=== PATIENT | male | born 1950 | race Native Hawaiian/Other Pacific Islander ===

== ENCOUNTER 2017-03-04 17:07 | Outpatient (CLI) | payer BC | END 2017-03-04 19:24 | disposition home or self-care (01) | LOC: CT 17:07 | DX: R10.11 Right upper quadrant pain (principal) ==

== ENCOUNTER 2018-07-17 07:45 | Outpatient (CLI) | payer BC, OTHER ==
[2018-07-17 08:09] LABS: PLATELET COUNT 225 K/uL (142-355)
== END 2018-07-17 19:50 | disposition home or self-care (01) ==
LOC: LABW 07:45
PROVIDERS: Internal Medicine Cardiovascular Disease
DX: Z79.899 Other long term (current) drug therapy (principal); E78.5 Hyperlipidemia, unspecified
CPT/HCPCS: 36415; 80053; 80061; 85027

== ENCOUNTER 2019-02-23 17:52 | Emergency (ER) | payer BC, MEDICARE ==
[~2019-02-23] VITALS: Ht 160 cm; Wt 88.9 kg
[2019-02-23 18:32] LABS: PLATELET COUNT 245 K/uL (142-355)
[2019-02-23 18:46] LABS: POTASSIUM 3.4 mmol/L (3.6-5.2); SODIUM 145 mmol/L (136-145)
[2019-02-23 21:20] VITALS: BP 179/91; TEMP 98.7
== END 2019-02-23 21:20 | disposition home or self-care (01) ==
LOC: ED 17:52
PROVIDERS: Emergency Medicine
PROC: 0D9670Z Drainage of Stomach with Drainage Device, Via Natural or Artificial Opening (ICD-10-PCS; principal; 2019-02-23)
DX: K92.0 Hematemesis (principal); R55 Syncope and collapse
CPT/HCPCS: 36415; 43754; 80053; 81000; 82150; 82271; 83690; 83986; 84484; 85027; 93005; 96360; 96375; 99284; J2405; J2765; J3490

== ENCOUNTER 2019-02-23 21:27 | Outpatient (CLI) | payer BC, OTHER | END 2019-02-23 22:00 | disposition short-term general hospital (02) | LOC: AMB 21:27 | DX: K92.2 Gastrointestinal hemorrhage, unspecified (principal) | CPT/HCPCS: A0425; A0427 ==

== ENCOUNTER 2020-01-15 12:19 | Outpatient (CLI) | payer OTHER | END 2020-01-15 20:36 | disposition home or self-care (01) | LOC: RAD 12:19 | DX: M06.4 Inflammatory polyarthropathy (principal); M54.5 Low back pain; M79.671 Pain in right foot; M79.672 Pain in left foot ==